=== PATIENT | male | born 1960 | race Caucasian/White ===

== ENCOUNTER → 2017-04-16 | Outpatient (CLI) | payer OTHER ==
[~2017-04-16] MED LIST: IBUP200C PO; NAPR250T PO; TAMS0.4C4 PO
--- NOTE | 2017-04-16 14:52 | RADRPT ---
EXAM DATE/TIME: 04/16/2017 13:44 This report includes an Addendum and supersedes previous reports for this exam. [facility] COMPARISON: No previous studies available for comparison. INDICATIONS : Myelopathy. Left leg/foot drop. MEDICAL HISTORY : None. SURGICAL HISTORY : None. ENCOUNTER: Initial ACUITY: 1 year PAIN SCORE: 0/10 LOCATION: neck. TECHNIQUE: Multiplanar, multisequence MRI examination of the cervical spine was performed. FINDINGS: The marrow signal appears intact, and the spinal cord appears intact with technique. C2-C3: No appreciable compromise to the thecal sac, exiting nerve roots are seen. The neural foramina are pa tent bilaterally. No appreciable thecal sac stenosis is seen. C3-C4: No appreciable compromise to the thecal sac, exiting nerve roots are seen. The neural foramina are pa tent bilaterally. No appreciable thecal sac stenosis is seen. C4-C5: No appreciable compromise to the thecal sac, exiting nerve roots are seen. The neural foramina are pa tent bilaterally. No appreciable thecal sac stenosis is seen. C5-C6: No appreciable compromise to the thecal sac, exiting nerve roots are seen. The neural foramina are pa tent bilaterally. No appreciable thecal sac stenosis is seen. C6-C7: No appreciable compromise to the thecal sac, exiting nerve roots are seen. The neural foramina are pa tent bilaterally. No appreciable thecal sac stenosis is seen. C7-T1: No appreciable compromise to the thecal sac, exiting nerve roots are seen. The neural foramina are pa tent bilaterally. No appreciable thecal sac stenosis is seen. CONCLUSION: Unremarkable study. Melo Viera MD on April 16, 2017 at 14:48 Board Certified Radiologist. This report was verified electronically. ADDENDUM: Upon review, there is high T2 signal abnormality and associated thinning of the cord on the left at C1 and C2 levels suggesting possible myelomalacia. Contrast MRI of the cervical spine is rec ommended for further evaluation. Wilian Rolon MD on June 08, 2017 at 16:19 Board Certified Radiologist. This report was verified electronically.
== END ==
LOC: HRAD 13:13
PROVIDERS: ATTEND Neurological Surgery
DX: M50.00 Cervical disc disorder with myelopathy, unspecified cervical region (principal)
CPT/HCPCS: 72141

== ENCOUNTER → 2017-06-12 | Outpatient (CLI) | payer OTHER ==
[~2017-06-12] MED LIST changes: +GADODIAMIDE PF 287 MG/ML 10 ML VIAL (for RAD MRI) IVCONTRAST ONE
--- NOTE | 2017-06-12 09:11 | RADRPT ---
EXAM DATE/TIME: 06/12/2017 07:50 [facility] COMPARISON: No previous studies available for comparison. INDICATIONS : Neoplasm. CONTRAST: 10 cc Omniscan (gadodiamide) IV MEDICAL HISTORY : None. SURGICAL HISTORY : None. ENCOUNTER: Subsequent ACUITY: 2 weeks PAIN SCORE: 0/10 LOCATION: [facility] TECHNIQUE: Multiplanar, multisequence MRI examination of the cervical spine was performed. FINDINGS: VERTEBRAE: Normal vertebral body height. Homogeneous marrow signal. ALIGNMENT: No evidence of subluxation. CORD: Again seen is an area of abnormality involving the cervical cord at the C2-C3 level. To the left of m idline there is a focal area of decreased volume and elevated T2 signal within the cord. No abnormal enhancement observed. No focal mass. The appearance is stable from the prior study. POST FOSSA: The cerebellar tonsils are normal in position. POST-CONTRAST: No abnormal areas of enhancement are seen. C2-C3: The thecal sac has a normal configuration. There is no evidence of disc herniation or spinal canal stenosis. The neural foramina are patent bilaterally. C3-C4: The thecal sac has a normal configuration. There is no evidence of disc herniation or spinal canal s tenosis. Bony uncovertebral hypertrophy is more pronounced on the right degenerating moderate neural foraminal narrowing. On the left the neural foramen remains patent. C4-C5: The thecal sac has a normal configuration. There is no evidence of disc herniation or spinal canal s tenosis. Bony uncovertebral hypertrophy is more pronounced on the right degenerating moderate neural foraminal narrowing. On the left the neural foramen remains patent. C5-C6: There is a mild broad-based disc bulge without abutment of the cord or central canal stenosis. Bony u ncovertebral hypertrophy which is more pronounced on the right. Mild narrowing of the right neural fo ramen. The left neural foramen remains patent. C6-C7: The thecal sac has a normal configuration. There is no evidence of disc herniation or spinal canal s tenosis. The neural foramina are patent bilaterally. C7-T1: The thecal sac has a normal configuration. There is no evidence of disc herniation or spinal canal s tenosis. The neural foramina are patent bilaterally. CONCLUSION: 1. Stable area of abnormality involving the cervical cord at the C2-C3 level. There is volume loss an d abnormal signal without abnormal enhancement. The findings are consistent with myelomalacia. Differ ential diagnostic considerations would include a postinflammatory process or a demyelinating process. Prior trauma could have a similar appearance although I see no other signs of trauma. Consideration could be made to an MRI of the brain to evaluate for any signs of a demyelinating process. Bob Jones Jr., MD on June 12, 2017 at 9:03 Board Certified Radiologist. This report was verified electronically.
== END ==
LOC: HRAD 06:56
PROVIDERS: ATTEND Neurological Surgery
DX: D49.7 Neoplasm of unspecified behavior of endocrine glands and other parts of nervous system (principal)
CPT/HCPCS: 72156; A9579

== ENCOUNTER 2017-09-19 17:34 | Inpatient (IN) | payer OTHER ==
[~2017-09-19] VITALS: Ht 170.2 cm; Wt 62.5 kg
[~2017-09-19 17:34] MED LIST changes: -GADODIAMIDE PF 287 MG/ML 10 ML VIAL (for RAD MRI) IVCONTRAST ONE; -NAPR250T PO; +NAPR250T4 PO
[2017-09-19 17:36] VITALS: BP 160/84; PULSE 72; RESP 12; TEMP 98.4; O2SAT 99
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
[2017-09-19] MEDS ORDERED: KETOROLAC TROMETHAMINE 60 MG/2 ML (IM) VIAL IM ONE (18:15)
--- NOTE | 2017-09-19 18:46 | RADRPT ---
EXAM DATE/TIME: 09/19/2017 18:17 [facility] COMPARISON: No previous studies available for comparison. INDICATIONS : Pain in right shoulder after falling. MEDICAL HISTORY : None. SURGICAL HISTORY : None. ENCOUNTER: Initial ACUITY: 1 day PAIN SCORE: 10/10 LOCATION: Right Shoulder. FINDINGS: Acromioclavicular joint is mildly widened. There is approximately 1/2 shaft width of superior displac ement of the distal clavicle with respect to the acromion. No fractures are demonstrated. Glenohumera l joint normally aligned, has mild osteoarthritis. CONCLUSION: acromioclavicular joint. No fracture. Hector Amaral MD on September 19, 2017 at 18:43 Board Certified Radiologist. This report was verified electronically.
--- NOTE | 2017-09-19 18:49 | RADRPT ---
EXAM DATE/TIME: 09/19/2017 18:24 [facility] COMPARISON: No previous studies available for comparison. INDICATIONS : Pain in left ribs after falling. MEDICAL HISTORY : None. SURGICAL HISTORY : None. ENCOUNTER: Initial ACUITY: 1 day PAIN SCORE: 10/10 LOCATION: Left Ribs. FINDINGS: Mildly displaced fractures are seen laterally of the left fifth through eighth ribs. There is an asso ciated small apical pneumothorax. No tension. No large hemothorax demonstrated. Right lung is clear. No right pneumothorax. CONCLUSION: Mildly displaced fractures laterally of the left fifth through eighth ribs and a small pneumothorax. Hector Amaral MD on September 19, 2017 at 18:45 Board Certified Radiologist. This report was verified electronically.
[2017-09-19] MEDS ORDERED: SODIUM CHLOR 0.9% 1000 ML INJ 1,000 ML IV SCH ×2 (18:58→23:37)
[2017-09-19] MEDS ORDERED: MORPHINE SULFATE 2 MG/ML INJ IV PUSH ONE (19:00)
[2017-09-19] MEDS ORDERED: SODIUM CHLORIDE 0.9% FLUSH 10 ML FLUSH IV FLUSH PRN ×2 (19:00→23:45)
[2017-09-19 19:04] VITALS: BP 165/96; PULSE 64; PULSE 78; RESP 12; O2SAT 100
[2017-09-19 19:46] LABS: AUTOMATED NEUTROPHIL # 9.6 TH/MM3 (1.8-7.7); BASOPHIL # 0.1 TH/MM3 (0-0.2); BASOPHIL % 0.6 % (0.0-2.0); EOSINOPHIL # 0.3 TH/MM3 (0-0.4); EOSINOPHIL % 2.5 % (0.0-4.0); HEMATOCRIT 47.9 % (39.0-51.0); HEMOGLOBIN 16.3 GM/DL (13.0-17.0); LYMPH % 10.9 % (9.0-44.0); LYMPHOCYTE # 1.3 TH/MM3 (1.0-4.8); MEAN CELL VOLUME 91.2 FL (80.0-100.0); MEAN PLATELET VOLUME 8.2 FL (7.0-11.0); MONO % 7.1 % (0.0-8.0); MONOCYTE # 0.9 TH/MM3 (0-0.9); NEUT % 78.9 % (16.0-70.0); PLATELET COUNT 217 TH/MM3 (150-450); RED BLOOD COUNT 5.25 MIL/MM3 (4.50-5.90); RED CELL DISTRIBUTION WIDTH 13.8 % (11.6-17.2); WHITE BLOOD COUNT 12.2 TH/MM3 (4.0-11.0)
[2017-09-19 20:00] VITALS: BP 164/74; PULSE 58; RESP 18; TEMP 95.8; O2SAT 100
[2017-09-19 20:04] LABS: ALT (GPT) 32 U/L (12-78); PROTHROMBIN TIME - PATIENT 10.5 SEC (9.8-11.6)
[2017-09-19 20:05] LABS: ALKALINE PHOSPHATASE 86 U/L (45-117); TOTAL BILIRUBIN ADULT 0.5 MG/DL (0.2-1.0); TOTAL PROTEIN 7.7 GM/DL (6.4-8.2)
[2017-09-19 20:09] LABS: ALBUMIN 4.1 GM/DL (3.4-5.0); AST (GOT) 32 U/L (15-37); BICARBONATE 27.9 MEQ/L (21.0-32.0); BLOOD UREA NITROGEN 19 MG/DL (7-18); CALCIUM 9.6 MG/DL (8.5-10.1); CHLORIDE 101 MEQ/L (98-107); CREATININE 0.98 MG/DL (0.60-1.30); GLOMERULAR FILTRATION RATE 79 ML/MIN (>89); GLUCOSE,RANDOM 113 MG/DL (74-106); SODIUM (NA) 137 MEQ/L (136-145)
--- NOTE | 2017-09-19 20:42 | RADRPT ---
EXAM DATE/TIME: 09/19/2017 20:13 [facility] COMPARISON: No previous studies available for comparison. INDICATIONS : Trauma, fall today. RADIATION DOSE: 56.35 CTDIvol (mGy) MEDICAL HISTORY : None SURGICAL HISTORY : None. ENCOUNTER: Initial ACUITY: 1 day PAIN SCALE: 3/10 LOCATION: Bilateral head TECHNIQUE: Multiple contiguous axial images were obtained of the head. Using automated exposure control and adj ustment of the mA and/or kV according to patient size, radiation dose was kept as low as reasonably a chievable to obtain optimal diagnostic quality images. DICOM format image data is available electro nically for review and comparison. FINDINGS: CEREBRUM: The ventricles are normal for age. No evidence of midline shift, mass lesion, hemorrhage or acute in farction. No extra-axial fluid collections are seen. POSTERIOR FOSSA: The cerebellum and brainstem are intact. The 4th ventricle is midline. The cerebellopontine angle i s unremarkable. EXTRACRANIAL: Other than the sphenoid air cells, and there is mucoperiosteal thickening of the sinuses. SKULL: The calvaria is intact. No evidence of skull fracture. CONCLUSION: No bleed or other acute intracranial abnormality. Chronic pansinusitis. Hector Amaral MD on September 19, 2017 at 20:38 Board Certified Radiologist. This report was verified electronically.
[2017-09-19 21:52] VITALS: BP 160/73; PULSE 54; RESP 20; O2SAT 100
[2017-09-19] MEDS ORDERED: ACETAMINOPHEN/HYDROcodone 325 MG/5 MG TAB PO PRN (23:15)
[2017-09-19] MEDS ORDERED: MORPHINE SULFATE 2 MG/ML INJ IV PRN (23:30)
[2017-09-19] MEDS ORDERED: ONDANSETRON HCL 4 MG/2 ML VIAL IV PUSH PRN (23:45)
[2017-09-19] MEDS ORDERED: MAGNESIUM HYDROXIDE SUSP 30 ML CUP PO PRN (23:45)
[2017-09-19] MEDS ORDERED: ENALAPRILAT 1.25 MG/ML VIAL IV PUSH PRN (23:45)
[2017-09-19 23:46] VITALS: PULSE 54
[2017-09-20] VITALS (9 sets, daily range): BP systolic 107–144; BP diastolic 59–73; PULSE 48–65; RESP 18–20; TEMP 95.2–97.1; O2SAT 92–100
[2017-09-20] MEDS: ACETAMINOPHEN/HYDROcodone 325 MG/5 MG TAB PO PRN ×4 (00:03→20:42)
--- NOTE | 2017-09-20 05:53 | RADRPT ---
EXAM DATE/TIME: 09/20/2017 04:57 [facility] COMPARISON: RIBS LEFT(W PA CXR MIN 3VWS), September 19, 2017, 18:24. INDICATIONS : Follow up, multiple rib fractures, and left sided pneumothorax. MEDICAL HISTORY : None. SURGICAL HISTORY : None. ENCOUNTER: Initial ACUITY: 1 day PAIN SCORE: 0/10 LOCATION: Bilateral chest FINDINGS: The heart size is normal. There is a persistent mild left pneumothorax measuring 1.4 cm. This unchang ed from the prior exam. There is mild hazy density at the left base. The right lung is clear. CONCLUSION: 1. Mild persistent stable left pneumothorax. 2. Hazy density at the left base likely related to atelectasis or contusion. Hector Johnson MD on September 20, 2017 at 5:48 Board Certified Radiologist. This report was verified electronically.
[2017-09-20 06:56] LABS: AUTOMATED NEUTROPHIL # 4.2 TH/MM3 (1.8-7.7); BASOPHIL # 0.1 TH/MM3 (0-0.2); BASOPHIL % 0.8 % (0.0-2.0); EOSINOPHIL # 0.4 TH/MM3 (0-0.4); EOSINOPHIL % 5.9 % (0.0-4.0); HEMATOCRIT 38.6 % (39.0-51.0); HEMOGLOBIN 13.3 GM/DL (13.0-17.0); LYMPH % 23.8 % (9.0-44.0); LYMPHOCYTE # 1.8 TH/MM3 (1.0-4.8); MEAN CORPUSCULAR HEMOGLOBIN 31.3 PG (27.0-34.0); MEAN CORPUSCULAR HGB CONC 34.4 % (32.0-36.0); MONO % 12.5 % (0.0-8.0); MONOCYTE # 0.9 TH/MM3 (0-0.9); PLATELET COUNT 162 TH/MM3 (150-450); RED BLOOD COUNT 4.24 MIL/MM3 (4.50-5.90); RED CELL DISTRIBUTION WIDTH 13.6 % (11.6-17.2); WHITE BLOOD COUNT 7.3 TH/MM3 (4.0-11.0)
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
[2017-09-20 07:47] LABS: ALKALINE PHOSPHATASE 64 U/L (45-117); ALT (GPT) 25 U/L (12-78); AST (GOT) 20 U/L (15-37); BICARBONATE 29.3 MEQ/L (21.0-32.0); BLOOD UREA NITROGEN 17 MG/DL (7-18); CALCIUM 7.9 MG/DL (8.5-10.1); CHLORIDE 108 MEQ/L (98-107); GLOMERULAR FILTRATION RATE 116 ML/MIN (>89); GLUCOSE,RANDOM 81 MG/DL (74-106); SODIUM (NA) 141 MEQ/L (136-145); TOTAL BILIRUBIN ADULT 0.6 MG/DL (0.2-1.0); TOTAL PROTEIN 5.8 GM/DL (6.4-8.2)
[2017-09-20] MEDS ORDERED: LACTULOSE SYRUP 20 GM/30 ML CUP PO PRN (08:00)
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
[2017-09-20] MEDS: DOCUSATE SODIUM 50 MG/SENNA 8.6 MG TAB PO SCH ×2 (08:44→20:40)
[2017-09-20] MEDS: POLYETHYLENE GLYCOL 17 GM PKG PO SCH ×2 (08:45→08:51)
[2017-09-20] MEDS: KETOROLAC TROMETHAMINE 30 MG/ML (IVP) VIAL IV PUSH SCH ×3 (08:45→17:51)
[2017-09-20] MEDS: METHOCARBAMOL 500 MG TAB PO SCH ×3 (08:45→20:43)
[2017-09-20] MEDS: LIDOCAINE HCL 5% PATCH T-DERMAL SCH (08:46)
[2017-09-20] MEDS ORDERED: DOCUSATE SODIUM 100 MG CAP PO SCH (09:00)
[2017-09-20] MEDS ORDERED: PANTOPRAZOLE SODIUM 40 MG VIAL IVP SCH (09:00)
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
[2017-09-20] MEDS ORDERED: TAMSULOSIN HCL 0.4 MG CAP PO SCH (21:00)
[2017-09-21] VITALS: BP 122/64; PULSE 58; RESP 18; TEMP 96.6; O2SAT 96
[2017-09-21] MEDS: KETOROLAC TROMETHAMINE 30 MG/ML (IVP) VIAL IV PUSH SCH ×3 (00:22→12:17)
[2017-09-21 03:43] VITALS: PULSE 55
[2017-09-21] MEDS: ACETAMINOPHEN/HYDROcodone 325 MG/5 MG TAB PO PRN ×2 (03:57→09:30)
[2017-09-21 04:00] VITALS: BP 132/66; PULSE 54; RESP 18; TEMP 96.4; O2SAT 95
[2017-09-21] MEDS: METHOCARBAMOL 500 MG TAB PO SCH ×2 (05:19→14:37)
--- NOTE | 2017-09-21 07:04 | RADRPT ---
EXAM DATE/TIME: 09/21/2017 05:41 [facility] COMPARISON: CHEST SINGLE AP, September 20, 2017, 4:57. INDICATIONS : Cough, short of breath, left chest and rib pain MEDICAL HISTORY : rib fractures SURGICAL HISTORY : None. ENCOUNTER: Subsequent ACUITY: 2 days PAIN SCORE: 10/10 LOCATION: Left chest FINDINGS: Very small left apical pneumothorax again noted. Mild consolidation left base unchanged. There are mu ltiple left rib fractures again noted. Right lung remains clear. CONCLUSION: Tiny left apical pneumothorax and mild left base consolidation unchanged. Hector Amaral MD on September 21, 2017 at 7:00 Board Certified Radiologist. This report was verified electronically.
[2017-09-21 07:42] VITALS: O2SAT 96
[2017-09-21 08:00] VITALS: BP 112/56; PULSE 65; RESP 18; TEMP 96; O2SAT 94
[2017-09-21] MEDS: DOCUSATE SODIUM 50 MG/SENNA 8.6 MG TAB PO SCH (09:30)
[2017-09-21] MEDS: POLYETHYLENE GLYCOL 17 GM PKG PO SCH (09:30)
[2017-09-21] MEDS: LIDOCAINE HCL 5% PATCH T-DERMAL SCH (09:30)
[2017-09-21] MEDS ORDERED: METH500T3 PO (11:30)
[2017-09-21] MEDS ORDERED: PERI PO (11:30)
[2017-09-21] MEDS ORDERED: HYDR-3366 PO (11:30)
[2017-09-21 12:00] VITALS: BP 147/70; PULSE 60; RESP 20; TEMP 95.5; O2SAT 96
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
== END 2017-09-21 15:26 | disposition home or self-care (01) | DRG 184 ==
LOC: NEPC 17:34 → NEDA 19:24 → N06A 22:13
PROVIDERS: ADMIT Surgery; ATTEND Surgery
DX: S22.42XA Multiple fractures of ribs, left side, initial encounter for closed fracture (principal); S27.0XXA Traumatic pneumothorax, initial encounter; S27.321A Contusion of lung, unilateral, initial encounter; S43.101A Unspecified dislocation of right acromioclavicular joint, initial encounter; S01.111A Laceration without foreign body of right eyelid and periocular area, initial encounter; W01.198A Fall on same level from slipping, tripping and stumbling with subsequent striking against other object, initial encounter; Y93.89 Activity, other specified; M21.372 Foot drop, left foot
CPT/HCPCS: 70450; 71045; 71101; 73030; 80053; 85025; 85610; 85730; 94150; 94667; 94668; 96372; J1885; J2270; J7030